=== PATIENT | female | born 1990 ===

== ENCOUNTER 2017-08-29 03:45 | Inpatient (IN) | payer MEDICAID, OTHER ==
[2017-08-29 04:44] VITALS: BMI 37.8
[2017-08-29] MEDS ORDERED: Lactated Ringer's 1,000 ML IV ONE (04:51)
[2017-08-29] MEDS ORDERED: Penicillin G Potassium 5 MU in Dextrose 5% In Water 50 ML IV ONE (04:53)
--- NOTE | 2017-08-29 05:15 | OBADHP ---
Datetime: 08/29/2017 05:03 Admit Comment, IP Provider: 26 y/o @ 37.5 wks GA JOIE 09/19/2017 late transfer to [facility] [place] [facility] , hx o0f 1 prior cxs reprots lof at 3am, clear, big gush. pt dnies any ctx , pain, vb, +VB> pt preort s she has been keepign track of her sugars and majority are normal as per patietn. 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 hx of anborma pap, fibroids, ovairan cyst, STI PMH: GDMA2 PSH: CxS x 1, SAB FHX: DM, HTN SHX: negative eoth/tobacco/drugs MEDS: PNV< Glyrudie 1.25mg daily NKDA A/P @ 37.5 wks GA prior cesearean section with GMDA2 with PROM for repeat Cearean section -admit to L+D -npo, ivf -admission labs -blood glucse q 4 hours -R/ba/i of Repat LTCxS not limited to infection, bleeding, possible injury to bowel, bladder or ot her orgas, -antiivocs -boone to graivty -OR/anesthesia -scds Pelvic Type - PN: Adequate Extremities - PN: Normal Abdomen - PN: Normal Back - PN: Normal Breast - PN: Not Done Lungs - PN: Normal Heart - PN: Normal Thyroid - PN: Not Done Neurologic - PN: Normal HEENT - PN: Normal General - PN: Normal Presentation-Admit: Vertex FHR - Baseline A Provider: 125 Amniotic Fluid Color, Provider: Clear Membranes, Provider: Ruptured Contraction Comments Provider: irregular Comments, ACOG Physical Exam: +Amnisure, clear fluid positive pooling Gestation - Est Wks by US: 37.5 Pool Provider: Positive Nitrazine Provider: Positive IP Hx Assessment: The History has been Reviewed and is Current Vital Signs Provider: Reviewed IP Chief Complaint: Suspected ruptured membranes NICHD Variability Prov Fetus A: Moderate 6-25bpm FHR Category Provider Fetus A: Category I NICHD Decel Fetus A IP Provider: None Dilatation, Provider: 0 Effacement, Provider: 0 Station, Provider: -3 Genitourinary Exam: Normal DTRs - PN: Normal EGA AdmitDate IP: 37.5 IP Adm Impression: Term, intrauterine IP Admit Plan: Admit to unit; Initiate Section protocol
[2017-08-29 05:33] LABS: BASO % 0.3 % (0.0-2.0); EOS # 0.2 K/uL (0.0-0.7); EOS % 1.2 % (0.0-4.0); HEMOGLOBIN 11.5 g/dL (11.0-16.0); LYMPH # 1.9 K/uL (1.0-4.3); LYMPH % 12.5 % (20.0-40.0); MEAN CELL VOLUME 78.5 fL (81.0-99.0); MEAN CORPUSCULAR HEMOGLOBIN 25.8 pg (27.0-31.0); MEAN CORPUSCULAR HGB CONC 32.9 g/dL (33.0-37.0); MONO # 0.8 K/uL (0.0-0.8); MONO % 5.6 % (0.0-10.0); NEUT # 12.1 K/uL (1.8-7.0); NEUT % 80.4 % (50.0-75.0); NRBC % 0.1 % (0.0-2.0); RBC 4.45 Mil/uL (3.80-5.20); RED CELL DISTRIBUTION WIDTH 16.4 % (11.5-14.5)
[2017-08-29 05:42] LABS: SQUAMOUS EPITHIAL 2 /hpf (0-5); URINE BILIRUBIN NEGATIVE (NEGATIVE); URINE BLOOD 1+ (NEGATIVE); URINE CALCIUM OXALATE CRYSTALS OCC /hpf (<OCC); URINE CLARITY Hazy (Clear); URINE COLOR Yellow (YELLOW); URINE GLUCOSE (UA) NORMAL (Normal); URINE LEUKOCYTE ESTERASE NEG Leu/uL (Negative); URINE PROTEIN 1+ mg/dL (NEGATIVE); URINE UROBILINOGEN NORMAL mg/dL (0.2-1.0)
[2017-08-29 05:48] LABS: ALB/GLOB RATIO 1.2 (1.0-2.1); ALBUMIN 3.9 g/dL (3.5-5.0); ALT/SGPT 16 U/L (9-52); AST/SGOT 21 U/L (14-36); BLOOD UREA NITROGEN 6 mg/dL (7-17); GFR AFRICAN-AMERICAN > 60; GFR NON-AFRICAN AMERICAN > 60
[2017-08-29 06:17] LABS: BARBITURATES, UR NEGATIVE (NEGATIVE); BENZODIAZEPINES, UR NEGATIVE (NEGATIVE); OPIATES, UR NEGATIVE (NEGATIVE); PHENCYCLIDINE, UR NEGATIVE (NEGATIVE)
[2017-08-29 06:20] LABS: HEPATITIS B SURFACE AG Negative (NEGATIVE)
[2017-08-29] MEDS ORDERED: Sodium Citrate/Citric Acid 15 ml Sol ONE (07:30)
[2017-08-29] MEDS ORDERED: Sodium Citrate/Citric Acid 15 ml Sol PO ONE (07:30)
[2017-08-29] MEDS ORDERED: ceFAZolin IV 2 gm in Dextrose 2 GM/50 ML BAG IVPB ONE ×2 (07:30→08:01)
[2017-08-29] MEDS ORDERED: Oxytocin 20 units in LR 2,000 ML IV ONE (07:31)
[2017-08-29] MEDS ORDERED: cefOXitin IV 2 gm in Saline 2 GM/50 ML BAG IVPB ONE (07:50)
[2017-08-29] MEDS ORDERED: Morphine 1 mg/ml preservative-free Inj(Duramorph) ONE (08:32)
[2017-08-29] MEDS ORDERED: ePHEDrine 50 mg/ml Inj ONE (08:41)
--- NOTE | 2017-08-29 10:09 | OBDS ---
DELIVERY PERSONNEL Delivery Doctor: Devin Champion MD Appellate Court Judge: Dax Dunbar RN Anesthesiologist: dr. thacker MATERNAL INFORMATION Delivery Anesthesia: Spinal Medications in Delivery: Pitocin 20units Placenta Cultured: No Maternal Complications: None Provider Comments: repeat cesearen section live male 6lbs 6 ounces ebl 800ml normal appearing uteurs, tubes, ovaries bilatelraly community association manager presnet for delivery LABOR SUMMARY EDC: 09/14/2017 00:00 No. Babies in Womb: 1 Attempted: No Labor Anesthesia: None LABOR INFORMATION Reason for Induction: Not Applicable Onset of Labor: 08/29/2017 03:30 Oxytocin: N/A Group B Beta Strep: Not Done Antibiotics # of Doses: 1 Antibiotics Time of Last Dose: 0530 Steroids Given: None Reason Steroids Not Administered: Not Applicable MEMBRANES Membranes Rupture Method: Spontaneous Rupture of Membranes: 08/29/2017 03:30 Length of Rupture (hrs): 5.97 Amniotic Fluid Color: Clear Amniotic Fluid Amount: Moderate Amniotic Fluid Odor: Normal STAGES OF LABOR Stage 3 hrs: 0 Stage 3 min: 1 Total Time in Labor hrs: 5 Total Time in Labor min: 59 CSECTION DELIVERY Primary Indication: Repeat Elective Secondary Indication: N/A CSection Urgency: Elective CSection Incidence: Repeat Labor: Labor Elective: Elective CSection Incision: Lower Uterine Transverse BABY A INFORMATION Infant Delivery Date/Time: 08/29/2017 09:28 Method of Delivery: Born in Route : No : N/A Forceps: N/A Vacuum Extraction: N/A Shoulder Dystocia : No SHOULDER DYSTOCIA BABY A Infant Delivery Date/Time: 08/29/2017 09:28 PRESENTATION/POSITION BABY A Presentation: Breech Cephalic Presentation: N/A Breech Presentation: [place] PLACENTA INFORMATION BABY A Placenta Delivery Time : 08/29/2017 09:29 Placenta Method of Delivery: Manual Removal Placenta Status: Delivered SCORES BABY A Heart Rate 1 min: >100 bpm Resp Effort 1 min: Good Cry Reflex Irritability 1 min: Cough or Sneeze or Pulls Away Muscle Tone 1 min: Active Motion Color 1 min: Body [place], Extremities Blue SCORE 1 MIN: 9 Heart Rate 5 min: >100 bpm Resp Effort 5 min: Good Cry Reflex Irritability 5 min: Cough or Sneeze or Pulls Away Muscle Tone 5 min: Active Motion Color 5 min: Body [place], Extremities Blue SCORE 5 MIN: 9 INFORMATION BABY A Gestational Age at Delivery: 37.5 Gestational Status: Term Outcome : Liveborn Condition : Stable Sex: Male IDENTIFICATION/MEDS BABY A ID Band Number: [id number] ID Band Location: Left Leg; Left Arm Sensor Applied: Yes Sensor Number: [id number] Sensor Location : Cord Clamp Vitamin K Given : Not Given Erythromycin Given: Not Given WEIGHT/LENGTH BABY A Birthweight (gms): 2905 Infant Weight (lb): 6 Infant Weight (oz): 6 Length Inches: 18.75 Infant Length cms: 47.6 CORD INFORMATION BABY A No. Cord Vessels: 3 Nuchal Cord : N/A Cord Blood Taken: Yes Suction: Mouth; Nose ASSESSMENT BABY A Infant Complications: None Physical Findings at Delivery: Within Normal Limits Infant Respirations: Appears Normal Refrigeration Engineer/ALS Called : Yes Care By: dr. barnes/deyanira hicks Transferred To: Remains with Mother
[2017-08-29] MEDS ORDERED: DiphenhydrAMINE 50 mg/ml Inj IVP PRN (10:16)
--- NOTE | 2017-08-29 10:18 | PCM.SURG1 ---
Surgeon's Initial Post Op Note - Surgeon's Notes Surgeon: Christie Champion MD Pest Technician: Pedro Beckett MD Type of Anesthesia: Spinal Pre-Operative Diagnosis: Term intrautiner , previous cesearen section, Premature ruputre of membrnes Operative Findings: live male infant, marisela breech presentation, apgars 9,9 weight of 6lbs 6 ounces ebl 800ml. normal appearing uteurs, tubes and ovaries bilaterally. manager retention present for delivery. Dr Pedro Beckett was salesperson surgical appliances and presetn for entire csae and essentia drew gaining entry, retraction , exposure, holidng bladder blade, helping to deliver the baby, cloisng all layers and obtaining hemotasis. Post-Operative Diagnosis: same as above, marisela breech presentation Operation Performed: Repeat low transverse cesearean section Specimen/Specimens Removed: placenta Estimated Blood Loss: EBL {In ML}: 800 Blood Products Given: N/A Drains Used: No Drains Date of Surgery/Procedure: 08/29/17 Time of Surgery/Procedure: 09:25
[2017-08-29] MEDS: Simethicone 80 mg Chewtab PO SCH ×3 (14:15→22:06)
[2017-08-29] MEDS: Oxycodone/Acetaminophen 5/325 mg Tab PO PRN (20:57)
[2017-08-30] MEDS: Oxycodone/Acetaminophen 5/325 mg Tab PO PRN ×3 (05:34→14:24)
--- NOTE | 2017-08-30 07:13 | OP ---
PROCEDURE DATE: 08/29/2017 SURGEON: Christie Champion MD PLASTICS HEAT WELDER: Pedro Beckett MD TYPE OF ANESTHESIA: Spinal. PREOPERATIVE DIAGNOSES: Term intrauterine , previous section, premature rupture of membranes. POSTOPERATIVE DIAGNOSES: Term intrauterine , previous section, premature rupture of membranes, marisela breech presentation. OPERATION PERFORMED: Repeat low transverse section. OPERATIVE FINDINGS: Live male , marisela breech presentation, Apgars 9 and 9, weight of 6 pounds 6 ounces. EBL 800 mL. Normal-appearing uterus, tubes, and ovaries bilaterally. Building Certifier present for delivery. Dr. Pedro Beckett was the rn medical surgical who was present for entire case, essential in gaining entry, retraction, exposure, holding the bladder blade upon delivery, closing all layers, obtaining hemostasis. SPECIMEN REMOVED: Placenta. ESTIMATED BLOOD LOSS: 800 mL. BLOOD PRODUCTS: None. COMPLICATIONS: None. DESCRIPTION OF PROCEDURE: The patient is a 26-year-old para 1 with a previous , complaining of rupture of membranes, which was confirmed by an AmniSure test positive pooling and nitrazine. The patient was long and closed. Given preoperative prophylactic antibiotics. Risks, benefits, alternatives, and indications of section were discussed with the patient. Consent was obtained. The patient was taken to the operating room where she was given preoperative prophylactic antibiotics. After spinal was deemed to be adequate, the patient was then prepped and draped in the usual sterile fashion. A time-out confirmed correct patient and correct procedure. A Pfannenstiel skin incision was made with a scalpel and carried down to the to the underlying fascia with the Bovie. The fascia was incised in the midline, and the incision was extended laterally with Bovie. The inferior aspect of the fascial incision was grasped with Allis and Dayana clamps, and the underlying rectus muscles were dissected off bluntly. Attention was then turned to the superior aspect in a similar fashion. It was grasped with Allis and Dayana clamps, and the underlying rectus muscles were dissected off bluntly. The rectus muscle was then bluntly in the midline using two Allis clamps in the midline using the scalpel incising the clear area. Finger was used to extend the incision, entering into the clear space. Peritoneum identified and entered bluntly. The incision was extended laterally and superiorly until there was good visualization of the bladder. The lower end of the Lindsey was then re-inserted. The lower uterine segment was incised superior to the bladder flap, and the uterine incision was extended laterally bluntly. At that point, the was noted to be extruding from the incision. After the uterine incision was extended laterally bluntly, the buttocks were then grasped and bilateral legs were delivered, and the was delivered in the usual fashion of breech delivery. A towel was placed over the lower extremity delivery of the legs using maneuver. The lower extremity was then delivered followed by delivery up to the scapula. The baby was then rotated for delivery of each shoulder and arms. was placed in the mouth, and the head was then flexed and delivered. The nuchal cord was clamped and cut. The baby was handed off to the waiting cardiothoracic surgeon. Cord blood and cord gases were collected and sent x2. The placenta was then delivered manually. The uterus was exteriorized of all clots and debris. The uterine incision was repaired with 0 Vicryl in a running continuous locked fashion. A second layer of 0 Vicryl was used to close the uterus in a running imbricating manner. There was good hemostasis at the uterine incision site. There were normal tubes and ovaries bilaterally. The uterus was returned to the abdomen. The paracolic gutters were cleared of all clots and debris and had good hemostasis. The peritoneum was reapproximated and closed with 2-0 chromic in running continuous fashion. The rectus was reapproximated with 2-0 chromic in an interrupted manner. The fascia was reapproximated and closed with 0 Vicryl in a running continuous fashion, subcutaneous layers with 2-0 plain. The skin was reapproximated and closed with shawanda. At the end of the procedure, all needles, sponge, and instrument counts were noted to be correct x2. The patient tolerated the procedure well and was transferred to the recovery room in stable condition. Christie Champion MD
[2017-08-30 08:23] LABS: MEAN CELL VOLUME 78.3 fL (81.0-99.0); MEAN CORPUSCULAR HEMOGLOBIN 26.3 pg (27.0-31.0); MEAN CORPUSCULAR HGB CONC 33.6 g/dL (33.0-37.0); RBC 4.18 Mil/uL (3.80-5.20); RED CELL DISTRIBUTION WIDTH 16.1 % (11.5-14.5)
[2017-08-30 08:40] LABS: ALB/GLOB RATIO 1.1 (1.0-2.1); ALBUMIN 3.1 g/dL (3.5-5.0); ALT/SGPT 27 U/L (9-52); AST/SGOT 25 U/L (14-36); BLOOD UREA NITROGEN 3 mg/dL (7-17); CALCIUM 8.7 mg/dl (8.6-10.4); GFR AFRICAN-AMERICAN > 60; GFR NON-AFRICAN AMERICAN > 60
[2017-08-30] MEDS: Simethicone 80 mg Chewtab PO SCH ×4 (09:03→21:58)
[2017-08-30] MEDS: Prenatal Multivit/Folic Acid/Iron Tab PO SCH (09:03)
[2017-08-30] MEDS ORDERED: Bisacodyl 5mg EC Tab PO ONE (10:27)
--- NOTE | 2017-08-30 19:24 | OBPPN ---
Datetime: 08/30/2017 18:58 PP Pain Prov: Within normal limits PP Nausea Prov: Denies PP Flatus Prov: No PP BM Prov: No PP Breasts Prov: Not Done PP Heart Prov: Normal PP Lungs Prov: Normal PP Abdomen/Uterus Prov: Normal PP Lochia Prov: Normal PP Vulva/Perineum Prov: Normal PP CVA Tenderness Prov: Normal PP Extremities Prov: Normal PP C/S Incision Prov: Normal PP Progress Prov: Normal PP Comments Phys Exam Prov: Incision clean, dry and intact PP Impression Prov: Normal progression PP Plan Prov: Continue present management PP Progress Note Prov: POD # 1 Voiding, eating ok Post C/S H_H 11.0/32.7 Not ambulating on hallways and drinking very little water Minimal flatus and no BM Advance care Encourage ambulation on hallways and increase po water intake IP PP Procedures: None Vital Signs Provider PP: Reviewed; Within Normal Limits
[2017-08-31] MEDS: Prenatal Multivit/Folic Acid/Iron Tab PO SCH (10:16)
[2017-08-31] MEDS: Simethicone 80 mg Chewtab PO SCH ×4 (10:16→22:29)
--- NOTE | 2017-08-31 15:18 | OBPPN ---
Datetime: 08/31/2017 15:08 PP Pain Prov: Within normal limits PP Nausea Prov: Denies PP Flatus Prov: Yes PP BM Prov: Yes PP Breasts Prov: Not Done PP Heart Prov: Normal PP Lungs Prov: Normal PP Abdomen/Uterus Prov: Normal PP Lochia Prov: Normal PP Vulva/Perineum Prov: Normal PP CVA Tenderness Prov: Normal PP Extremities Prov: Normal PP C/S Incision Prov: Normal PP Progress Prov: Abnormal PP Comments Phys Exam Prov: Incision clean, dry and intact PP Impression Prov: Normal progression; difficulties PP Plan Prov: Continue present management PP Progress Note Prov: POD # 2 Doing well but difficulty with Denies any other complaint Incision healing well Stable and Satisfactory condition and recovery Advance care Encourage to incrase po water intake and ambulate on hallways Hope to Discharge home in AM IP PP Procedures: None
[2017-09-01 08:44] VITALS: BP 107/65; PULSE 75; RESP 20; TEMP 97.4; O2SAT 98
[2017-09-01] MEDS: Simethicone 80 mg Chewtab PO SCH (09:23)
[2017-09-01] MEDS: Prenatal Multivit/Folic Acid/Iron Tab PO SCH (09:23)
== END 2017-09-01 13:25 | disposition home or self-care (01) | DRG 651 ==
LOC: C.EROB 03:45 → C.4D 04:50 → C.4M 12:39
PROVIDERS: ADMIT Obstetrics & Gynecology; ATTEND Obstetrics & Gynecology
PROC: 10D00Z1 Extraction of Products of Conception, Low, Open Approach (ICD-10-PCS; principal; 2017-08-29)
DX: O42.02 Full-term premature rupture of membranes, onset of labor within 24 hours of rupture (principal); O34.211 Maternal care for low transverse scar from previous cesarean delivery; O32.1XX0 Maternal care for breech presentation, not applicable or unspecified; O24.420 Gestational diabetes mellitus in childbirth, diet controlled; Z3A.37 37 weeks gestation of pregnancy; Z86.32 Personal history of gestational diabetes; Z37.0 Single live birth